=== PATIENT | female | born 1980 | race Asian ===

== ENCOUNTER 2019-03-26 02:40 | Observation (INO) | payer BC, OTHER ==
[2019-03-26] VITALS (26 sets, daily range): BP systolic 93–114; BP diastolic 52–74; PULSE 71–91; RESP 16–24; Ht 162.6 cm; Wt 67.0 kg
[~2019-03-26] VITALS: Ht 162.6 cm; Wt 67.0 kg
[2019-03-26] MEDS ORDERED: ACETAMINOPHEN 325 MG TAB PO PRN (05:30)
[2019-03-26] MEDS ORDERED: ONDANSETRON 4 MG INJ IV PRN ×2 (05:30→10:30)
[2019-03-26] MEDS ORDERED: DOXYCYCLINE 100 MG in SOD CHLORIDE 0.9% 250 ML IVPB ONE (08:00)
[2019-03-26] MEDS ORDERED: FENTAnyl 50 MCG/ML VIAL ONE ×2 (10:02→10:40)
[2019-03-26] MEDS ORDERED: DIPHENHYDRAMINE 50 MG INJ IV PRN (10:30)
[2019-03-26] MEDS ORDERED: METOCLOPRAMIDE 10 MG INJ IV PRN (10:30)
[2019-03-26] MEDS ORDERED: HYDROmorphONE 1 MG/5 ML IV SYRINGE IV PRN ×2 (10:30)
[2019-03-26] MEDS ORDERED: FENTAnyl 50 MCG/ML VIAL IV PRN ×2 (10:30)
[2019-03-26] MEDS ORDERED: ALBUTEROL 0.083% (NEB) 2.5 MG/3 ML AMP HHN PRN (10:30)
[2019-03-26] MEDS ORDERED: MEPERIDINE 25 MG INJ IV PRN (10:30)
[2019-03-26] MEDS ORDERED: PROPOFOL 0 ML ONE (10:39)
[2019-03-26] MEDS ORDERED: LIDOCAINE 2% (SDV) 5 ML INJ ONE (10:39)
[2019-03-26] MEDS ORDERED: MIDAZOLAM 1 MG/ML 2 ML INJ ONE (10:39)
[2019-03-26] MEDS ORDERED: OXYTOCIN 10 UNIT INJ ONE (10:40)
[2019-03-26] MEDS ORDERED: ONDANSETRON 4 MG INJ ONE (10:40)
[2019-03-26] MEDS ORDERED: LIDOCAINE 100 MG SYRINGE ONE (10:40)
[2019-03-26] MEDS ORDERED: METOCLOPRAMIDE 10 MG INJ ONE (10:40)
[2019-03-26] MEDS ORDERED: SUCCINYLCHOLINE CHLORIDE 100 MG/5 ML SYG IV ONE (10:40)
[2019-03-26] MEDS ORDERED: PROPOFOL 20 ML ONE (10:40)
[2019-03-26] MEDS ORDERED: DEXAMETHASONE 4 MG/ML 5 ML INJ ONE (10:40)
[2019-03-26] MEDS ORDERED: SILVER NITRATE SWAB ONE (10:48)
[2019-03-26] MEDS ORDERED: HYDROCODONE/APAP (5/325) TAB PO PRN (12:30)
[2019-03-26] MEDS ORDERED: DOXYCYCLINE 100 MG TAB PO ONE (17:30)
[2019-03-27 03:17] VITALS: BP 112/58; PULSE 79; RESP 18
[2019-03-27] MEDS ORDERED: PHENOL 1.4% SOLN 180 ML BTL MT PRN (03:30)
[2019-03-27] MEDS: ACETAMINOPHEN 325 MG TAB PO PRN ×2 (03:32→11:34)
[2019-03-27 07:51] VITALS: BP 101/68; PULSE 81; RESP 18
[2019-03-27 14:30] VITALS: BP 115/68; PULSE 90; RESP 18
== END 2019-03-27 16:00 | disposition home or self-care (01) ==
LOC: MERGE 02:40 → FTE 02:40 → 2NE 05:22
PROVIDERS: ADMIT Obstetrics & Gynecology; ATTEND Obstetrics & Gynecology
DX: O02.1 Missed abortion (principal)
CPT/HCPCS: 59820; 76801; 76817; 81001; 84702; 85025; 86850; 86900; 86901; G0378; J1170; J2001; J2590; J2765; J3010; J7050; 36415; 81003; 88305; J1100; J2250; J2405